=== PATIENT | male | born 1975 | race African-American/Black ===

== ENCOUNTER → 2016-05-19 | Outpatient (CLI) | payer OTHER ==
[~2016-05-19] MED LIST: CONRAY-43 43% 50ML VIAL (Q9960) As Ordered ONE
--- NOTE | 2016-05-19 11:39 | REP ---
MR arthrography right shoulder: with pre and post intra-articular gadolinium enhanced saline injected imaging: History: Right shoulder pain. No comparison radiography. Technique: The injection procedure is performed and dictated separately. Pre and post intra-articular gadolinium enhanced saline injected imaging is acquired. Imaging planes include axial, oblique coronal, oblique sagittal and ABER projection images. T1 T2-weighted scans are included with and without fat saturation. MRI findings: Pre injection MR imaging shows normal alignment of the glenohumeral and acromioclavicular joints. There is moderate osteoarthritic hypertrophy at the AC joint. There is a subacromial subdeltoid bursal effusion. There is advanced swelling and increased signal intensity in the distal supraspinatus tendon consistent with tendonitis tendinosis. There is a T2 hyperintense lesion which appears to be full-thickness at the distal insertion of the supraspinatus on the greater tuberosity consistent with a distal supraspinatus cuff tear. Small amount of glenohumeral joint fluid is visible. Post injection imaging shows good filling and enhancement of the right glenohumeral articulation. Post gadolinium enhanced T1-weighted fat sat images confirm the presence of a full-thickness tear of the distal supraspinatus tendon with enhancement in the subacromial subdeltoid bursa across the tear. Superior labral cartilage appears intact. No anterior or posterior labral tear is seen. No loose body is seen. The subscapularis, infraspinatus, and biceps tendons have an intact appearance. Impression: Full-thickness distal supraspinatus cuff tear. Subacromial subdeltoid bursal effusion. AC joint osteoarthritis. Signed by Rio Enriquez MD 05/19/2016 11:47 A
--- NOTE | 2016-05-19 19:31 | REP ---
Procedure: Right shoulder arthrogram The procedure was performed under the direct supervision of Dr. Enriquez. History: Right shoulder pain The benefits and risks including but not limited to pain, infection, bleeding and anaphylaxis were explained to the patient and informed consent was obtained. Technique: The right glenohumeral joint space was localized using fluoroscopic guidance. The skin was prepped and draped in a sterile fashion. 1% lidocaine was used as a local anesthetic. Using fluoroscopic guidance a 22 gauge spinal needle was inserted and advanced into the joint. 0.5 ml of Conray 43 was injected to verify placement. 11 ml of a solution containing 20 ml of sterile saline and 0.15 ml of ProHance was injected into the joint. The needle was removed and the patient was taken to MRI for postprocedural imaging. The the patient tolerated the procedure well and there were no immediate complications. 2 seconds of fluoro time was utilized for this procedure. Reviewed by SAVANAH Summers 05/19/2016 01:37 PSigned by Rio Enriquez MD 05/19/2016 07:21 P
== END ==
LOC: M RADPRO 06:59
PROVIDERS: ATTEND Chiropractor
DX: M75.121 Complete rotator cuff tear or rupture of right shoulder, not specified as traumatic (principal); M25.411 Effusion, right shoulder; M19.011 Primary osteoarthritis, right shoulder
CPT/HCPCS: 23350; 73040; 73223; A9576; Q9960

== ENCOUNTER → 2016-11-02 | Outpatient (CLI) | payer OTHER ==
--- NOTE | 2016-11-04 13:07 | ECHO ---
DATE OF PROCEDURE: 11/04/2016 DATE OF : 1975 AGE: 41 REFERRING PROVIDER: Dr. Og Baptiste. PATIENT LOCATION: Outpatient. REASON FOR ECHOCARDIOGRAM: Abnormal EKG. 2D MEASUREMENTS: IVS: 1.0 cm LV: 4.7 cm LVPW: 1.1 cm LA: 4.0 cm Aorta: 3.2 cm IVC: 1.7 cm DOPPLER MEASUREMENTS: Peak velocity across the aortic valve: 1.4 m/s Peak velocity across the LVOT: 0.84 m/s Mitral E: 0.82 Mitral A: 0.59 Ratio 1.4 Maximum tricuspid valve velocity: 2.0 m/s 2D COMMENTS: 1. Normal left ventricular size, wall thickness and normal global left ventricular systolic function. The estimated global left ventricular systolic ejection fraction is 60% to 65%. 2. Normal left atrium. Normal right atrium and right ventricle. 3. The atrial septum appeared to be normal without evidence of defect or shunt. 4. Normal aortic root. 5. No pericardial effusion seen. 6. The aortic valve, mitral valve, tricuspid valve, and pulmonic valve appeared to be normal. The proximal pulmonary artery branches were normal. 7. The inferior vena was normal in size, central venous pressure is most likely normal. DOPPLER: It detects trace mitral regurgitation and trace tricuspid regurgitation. The calculated pulmonary artery systolic pressure was normal, less than 30 mmHg. IMPRESSION: 1. Normal global left ventricular systolic and diastolic function. 2. Trace mitral regurgitation. 3. Trace tricuspid regurgitation with a normal calculated pulmonary artery systolic pressure. MTDD
== END ==
LOC: M CARPUL 08:23
PROVIDERS: ATTEND Internal Medicine
DX: I49.9 Cardiac arrhythmia, unspecified (principal)

== ENCOUNTER → 2016-11-30 | Outpatient (CLI) | payer OTHER ==
[~2016-11-30] MED LIST changes: -CONRAY-43 43% 50ML VIAL (Q9960) As Ordered ONE; +ISOVUE-370 76% 100ML VIAL (Q9967) As Ordered ONE
--- NOTE | 2016-11-30 13:21 | REP ---
Maxillofacial CT study without contrast: History: Parotid gland neoplasm. Technique: Helical scanning is acquired. 3 mm axial images are reformatted. Coronal and sagittal multiplanar re-formation images are generated and reviewed. CT findings: A BB skin marker is affixed to the skin over the right parotid gland. There are normal intraparotid subcentimeter lymph nodes. No parotid mass lesion is seen on either side. No extraparotid mass or adenopathy is observed. Submandibular glands are normal and symmetric. There are mucous retention cyst changes in the maxillary sinuses bilaterally. Otherwise, the maxillary sinuses are clear. Exam is otherwise unremarkable. Impression: No parotid mass lesion or other mass lesion visible. Signed by Rio Enriquez MD 11/30/2016 01:40 P
== END ==
LOC: M RAD 07:28
PROVIDERS: ATTEND Otolaryngology
DX: D11.0 Benign neoplasm of parotid gland (principal)

== ENCOUNTER → 2016-12-14 | Outpatient (CLI) | payer OTHER ==
--- NOTE | 2016-12-14 15:51 | REP ---
RIGHT SHOULDER, THREE VIEWS: HISTORY: Pain. COMPARISON: 07/10/2016 There is no acute fracture or dislocation. There is narrowing of the acromioclavicular joint with associated osteophyte formation. Postoperative change is present in the proximal humerus. IMPRESSION: Degenerative change as described above. Signed by Hunter Rios MD 12/14/2016 03:58 P
--- NOTE | 2016-12-15 15:10 | REP ---
MRI right shoulder without contrast: History: Right shoulder pain. Question rotator cuff tear. A follow-up question second surgery. History of frozen shoulder. Comparison MRI study May 19, 2016 showed full-thickness distal supraspinatus cuff tear and its subacromial subdeltoid bursal effusion. Comparison radiographs are from this date. Technique: Oblique coronal, oblique sagittal, and axial imaging planes were utilized for T1 and T2-weighted scans obtained in the usual fashion with and without fat saturation. MRI findings: There are postsurgical anchored defects in the greater tuberosity region of the proximal humerus and anteriorly in the surgical neck region of the proximal humerus consistent with previous orthopedic procedure. Micro metallic artifact is seen in the distal supraspinatus tendon region and in the periarticular soft tissues in this region from previous surgery. There is some swelling and increased signal intensity in the distal supraspinatus but there is no evidence of discontinuity to suggest recurrent tear. AC joint osteoarthritic hypertrophy is again seen. No labral disruption is appreciated. The biceps tendon appears somewhat smaller. No juxtaarticular cyst or mass is seen. Impression: Postoperative changes in the humeral head and periarticular soft tissues. Tendonitis tendinosis pattern in the distal supraspinatus. No evidence of recurrent tear. There is a small sliver of fluid in the region of the subacromial subdeltoid bursa. AC joint hypertrophy persists. No labral tear is seen. Signed by Rio Enriquez MD 12/15/2016 03:18 P
== END ==
LOC: M RAD 14:01
PROVIDERS: ATTEND Orthopaedic Surgery
DX: M19.011 Primary osteoarthritis, right shoulder (principal); Z98.890 Other specified postprocedural states